=== PATIENT | male | born 1950 | race Caucasian/White ===

== ENCOUNTER → 2017-11-09 | Outpatient (CLI) | payer MEDICARE ==
[~2017-11-09] MED LIST: AMIT150T PO; APIX5TAB PO; FLUO40CA2 PO; GABA600T2 PO; MORP60TA PO; OXYC-307 PO; PREG300C PO
== END | disposition home or self-care (01) ==
LOC: STAR 09:09
PROVIDERS: ATTEND Internal Medicine Cardiovascular Disease
DX: Z02.9 Encounter for administrative examinations, unspecified (principal)

== ENCOUNTER 2017-11-12 05:52 | Observation (INO) | payer MEDICARE ==
[2017-11-09 09:46] VITALS: BP 137/103
[2017-11-09 10:20] LABS: ALANINE AMINOTRANSFERASE 23 U/L (12-78); ALBUMIN 3.7 g/dL (3.4-5.0); ANION GAP 5 mmol/L (5-15); CALCIUM 8.5 mg/dL (8.5-10.1); CHLORIDE 105 mmol/L (98-107); CREATININE 0.75 mg/dL (0.7-1.3)
[2017-11-09 10:23] LABS: ALKALINE PHOSPHATASE 91 U/L (45-117); BILIRUBIN,TOTAL 0.3 mg/dL (0.2-1.0)
[2017-11-09 10:31] LABS: BASOPHILS # (AUTO) 0.01 x10^3/uL (0-0.1); BASOPHILS % (AUTO) 0 % (0-1); EOSINOPHILS # (AUTO) 0.07 x10^3/uL (0-0.4); EOSINOPHILS % (AUTO) 1 % (1-7); LYMPHOCYTES # (AUTO) 0.96 x10^3/uL (1-3.4); LYMPHOCYTES % (AUTO) 17 % (22-44); MD NO; MEAN CORPUSCULAR HEMOGLOBIN 30.7 pg (27.5-34.5); MEAN CORPUSCULAR HGB CONC 33.8 g/dL (33.2-36.2); MEAN CORPUSCULAR VOLUME 90.9 fL (81-97); MEAN PLATELET VOLUME 9.2 fL (7.4-10.4); MONOCYTES % (AUTO) 5 % (2-9); NEUTROPHILS # (AUTO) 4.36 x10^3/uL (1.8-6.8); NEUTROPHILS % (AUTO) 77 % (42-75); PLATELET COUNT 182 x10^3/uL (130-400); RED BLOOD COUNT 4.73 x10^6/uL (4.38-5.82); RED CELL DISTRIBUTION WIDTH 14.3 % (9.4-14.8)
[~2017-11-12] VITALS: Ht 182.9 cm; Wt 81.8 kg
[~2017-11-12 05:52] MED LIST changes: -APIX5TAB PO
[2017-11-12] MEDS ORDERED: SODIUM CHLORIDE 0.9% 1,000 ML IV SCH ×2 (06:05→06:30)
[2017-11-12] MEDS ORDERED: MIDAZOLAM 1 MG/ML, 2ML ONE (07:47)
[2017-11-12] MEDS ORDERED: FENTANYL PF 250 MCG/5ML ONE (07:47)
[2017-11-12] MEDS ORDERED: PROPOFOL 10 MG/ML, 20ML ONE (08:08)
[2017-11-12] MEDS ORDERED: PHENYLEPHRINE 10 MG/ML ONE (08:08)
[2017-11-12] MEDS ORDERED: ONDANSETRON 2MG/ML, 2ML ONE (08:08)
[2017-11-12] MEDS ORDERED: DEXAMETHASONE 4 MG/ML, 1ML ONE (08:08)
[2017-11-12] MEDS ORDERED: CEFAZOLIN 1,000 MG ONE (08:08)
[2017-11-12] MEDS ORDERED: ROCURONIUM 10 MG/ML,10ML ONE (08:08)
[2017-11-12] MEDS ORDERED: SUCCINYLCHOLINE 20 MG/ML, 10ML ONE (08:08)
[2017-11-12 08:20] VITALS: BP 137/103
[2017-11-12] MEDS ORDERED: LIDOCAINE 2%, 50ML ONE (08:25)
[2017-11-12] MEDS ORDERED: OXYcodone/APAP 10/325MG TABLET PO PRN (09:30)
[2017-11-12] MEDS ORDERED: hydrALAzine 20 MG/ML, 1ML IV PRN (10:00)
[2017-11-12] MEDS ORDERED: ALBUTEROL SULFATE 2.5 MG/3 ML NPPB PRN (10:00)
[2017-11-12] MEDS ORDERED: OXYcodone 5 MG/5 ML ORAL.SOL UDC PO PRN (10:00)
[2017-11-12] MEDS ORDERED: MIDAZOLAM 1 MG/ML, 2ML IV PRN (10:00)
[2017-11-12] MEDS ORDERED: ONDANSETRON 2MG/ML, 2ML IV PRN (10:00)
[2017-11-12] MEDS ORDERED: FENTANYL PF 100 MCG/2ML IV PRN (10:00)
[2017-11-12] MEDS ORDERED: ACETAMINOPHEN 325 MG TABLET PO PRN ×2 (10:00→12:00)
[2017-11-12] MEDS ORDERED: HYDROmorphone 1 MG/ML, 1ML IV PRN (10:00)
[2017-11-12] MEDS ORDERED: LORazepam 2 MG/ML, 1ML IVPush PRN (10:00)
[2017-11-12] MEDS ORDERED: LABETALOL 5MG/ML, 20ML IV PRN (10:00)
[2017-11-12] MEDS ORDERED: PROMETHAZINE 12.5 MG SUPP PR PRN (10:00)
[2017-11-12] MEDS ORDERED: PROMETHAZINE 25 MG/ML, 1ML IV PRN (10:00)
[2017-11-12] MEDS ORDERED: ONDANSETRON ODT 8 MG PO PRN (10:00)
[2017-11-12] MEDS ORDERED: MEPERIDINE/PF 25MG/0.5ML IVPush PRN (10:00)
[2017-11-12] MEDS ORDERED: ACETAMINOPHEN 650 MG/20.3 ML UDC ONE (10:31)
[2017-11-12] MEDS ORDERED: OXYcodone 5 MG/5 ML ORAL.SOL UDC ONE (10:31)
[2017-11-12] MEDS ORDERED: GABAPENTIN 300 MG CAPSULE PO SCH (11:00)
[2017-11-12] MEDS ORDERED: CEFAZOLIN PMX 1GM/50ML 50 ML IVPB SCH (12:00)
[2017-11-12] MEDS ORDERED: HYDROcodone/APAP 5/325 TABLET PO PRN (12:00)
[2017-11-12] MEDS ORDERED: HOLD MEDICATION MC PRN (12:00)
[2017-11-12] MEDS ORDERED: APIX5TAB PO (13:27)
[2017-11-12] MEDS ORDERED: OMEPRAZOLE 10 MG CAPSULE.DR PO ONE (13:30)
[2017-11-12] MEDS ORDERED: morphine SULFATE 60 MG TABLET.ER PO SCH (16:00)
[2017-11-12] MEDS ORDERED: AMITRIPTYLINE 50 MG TABLET PO SCH (21:00)
[2017-11-12] MEDS ORDERED: SODIUM CHLORIDE FLUSH 10ML SYR IVF SCH (21:00)
[2017-11-12] MEDS ORDERED: PREGABALIN 150 MG CAPSULE PO SCH (21:00)
[2017-11-13] MEDS ORDERED: FLUOXETINE HCL 20 MG CAPSULE PO SCH (09:00)
== END 2017-11-12 14:22 | disposition home or self-care (01) ==
LOC: CACL 05:52 → ORIP 11:35
PROVIDERS: ADMIT Internal Medicine Cardiovascular Disease; ATTEND Internal Medicine Cardiovascular Disease
DX: I48.92 Unspecified atrial flutter (principal); Z79.01 Long term (current) use of anticoagulants
CPT/HCPCS: 36415; 71046; 80053; 85025; 93312; 93321; 93325; 93613; 93621; 93653; C1730; C1731; C1894; C2630; G0378; J0330; J0690; J1100; J2250; J2370; J2405; J2704; J3010

== ENCOUNTER 2018-11-04 11:21 | Outpatient (CLI) | payer MEDICARE ==
[~2018-11-04 11:21] MED LIST changes: +APIX5TAB PO; -GABA600T2 PO; +GABA600T7 PO; -MORP60TA PO; +MORP60TA63 PO
[2018-11-04] MEDS ORDERED: REGADENOSON 0.4 MG/5 ML SYRINGE ONE (11:30)
== END 2018-11-04 23:59 | disposition home or self-care (01) ==
LOC: CFH 11:21
PROVIDERS: ATTEND Internal Medicine Cardiovascular Disease
DX: I48.92 Unspecified atrial flutter (principal)
CPT/HCPCS: 78452; 93017; A9502; J2785

== ENCOUNTER 2019-03-11 06:13 | Observation (INO) | payer MEDICARE ==
[2019-03-10 10:56] LABS: BASOPHILS # (AUTO) 0.01 x10^3/uL (0-0.1); BASOPHILS % (AUTO) 0 % (0-1); EOSINOPHILS # (AUTO) 0.18 x10^3/uL (0-0.4); EOSINOPHILS % (AUTO) 4 % (1-7); LYMPHOCYTES # (AUTO) 1.06 x10^3/uL (1-3.4); LYMPHOCYTES % (AUTO) 21 % (22-44); MD NO; MEAN CORPUSCULAR HEMOGLOBIN 30.2 pg (27.5-34.5); MEAN CORPUSCULAR VOLUME 91.6 fL (81-97); MEAN PLATELET VOLUME 8.8 fL (7.4-10.4); MONOCYTES # (AUTO) 0.39 x10^3/uL (0.2-0.8); MONOCYTES % (AUTO) 8 % (2-9); NEUTROPHILS # (AUTO) 3.41 x10^3/uL (1.8-6.8); NEUTROPHILS % (AUTO) 68 % (42-75); PLATELET COUNT 180 x10^3/uL (130-400); RED BLOOD COUNT 4.93 x10^6/uL (4.38-5.82); RED CELL DISTRIBUTION WIDTH 16.5 % (9.4-14.8)
[2019-03-10 11:03] LABS: ANION GAP 5 mmol/L (5-15); CALCIUM 9.2 mg/dL (8.5-10.1); CHLORIDE 102 mmol/L (98-107); CREATININE 0.75 mg/dL (0.7-1.3)
[2019-03-10 11:08] VITALS: BP 164/88
[~2019-03-11] VITALS: Ht 182.9 cm; Wt 82.3 kg
[~2019-03-11 06:13] MED LIST changes: +ONDA8TAB15 PO; +fluoxetine PO; +lidoderm patch 5% TD
[2019-03-11] MEDS ORDERED: SODIUM CHLORIDE 0.9% 1,000 ML IV SCH (06:23)
[2019-03-11] MEDS ORDERED: LIDOCAINE 1%, 20ML ONE (07:01)
[2019-03-11] MEDS ORDERED: PROPOFOL 50 ML ONE (07:49)
[2019-03-11] MEDS ORDERED: FENTANYL PF 250 MCG/5ML ONE (07:49)
[2019-03-11] MEDS ORDERED: MIDAZOLAM 1 MG/ML, 2ML ONE (07:49)
[2019-03-11] MEDS ORDERED: MIDAZOLAM 1 MG/ML, 2ML IV PRN (09:30)
[2019-03-11] MEDS ORDERED: OXYcodone 5 MG/5 ML ORAL.SOL UDC PO PRN (09:30)
[2019-03-11] MEDS ORDERED: EPHEDRINE 50 MG/ML, 1ML IM PRN (09:30)
[2019-03-11] MEDS ORDERED: PLEASE ENTER HEIGHT AND WEIGHT MC SCH (09:30)
[2019-03-11] MEDS ORDERED: EPHEDRINE 50 MG/ML, 1ML IVPush PRN (09:30)
[2019-03-11] MEDS ORDERED: FENTANYL PF 100 MCG/2ML IV PRN (09:30)
[2019-03-11] MEDS ORDERED: DIAZEPAM 5 MG/ML, 2ML IVPush PRN (09:30)
[2019-03-11] MEDS ORDERED: ACETAMINOPHEN 325 MG TABLET PO PRN (09:30)
[2019-03-11] MEDS ORDERED: DIPHENHYDRAMINE 50 MG/ML, 1ML IVPush PRN (09:30)
[2019-03-11] MEDS ORDERED: MORPHINE SULFATE 4 MG/ML, 1ML IVPush PRN (09:30)
[2019-03-11] MEDS ORDERED: SUCCINYLCHOLINE 20 MG/ML, 10ML ONE (10:25)
[2019-03-11] MEDS ORDERED: HEPARIN 1,000 UNITS/ML, 10ML ONE ×2 (10:25)
[2019-03-11] MEDS ORDERED: DEXAMETHASONE 4 MG/ML, 1ML ONE ×2 (10:25)
[2019-03-11] MEDS ORDERED: ROCURONIUM 10MG/ML,5ML ONE (10:25)
[2019-03-11] MEDS ORDERED: ONDANSETRON 2MG/ML, 2ML ONE (10:25)
[2019-03-11] MEDS ORDERED: ONDANSETRON 8 MG TABLET PO SCH (10:30)
[2019-03-11] MEDS ORDERED: APIXABAN 5 MG TABLET ONE (11:29)
[2019-03-11] MEDS: APIXABAN 5 MG TABLET PO SCH ×2 (11:30→21:18)
[2019-03-11] MEDS ORDERED: LIDODERM 5% PATCH TD PRN (12:30)
[2019-03-11] MEDS: OXYcodone/APAP 10/325MG TABLET PO PRN ×3 (12:47→21:18)
[2019-03-11 13:44] VITALS: BP 104/68
[2019-03-11] MEDS: morphine SULFATE 60 MG TABLET.ER PO SCH ×2 (16:35→21:00)
[2019-03-11 18:43] VITALS: BP 120/74
[2019-03-11] MEDS: GABAPENTIN 400 MG CAPSULE PO SCH (20:38)
[2019-03-11] MEDS: PREGABALIN 150 MG CAPSULE PO SCH (20:38)
[2019-03-11] MEDS ORDERED: AMITRIPTYLINE 75 MG TABLET PO SCH (21:00)
[2019-03-12 00:07] VITALS: BP 92/49
[2019-03-12 06:16] VITALS: BP 163/95
[2019-03-12] MEDS: OXYcodone/APAP 10/325MG TABLET PO PRN (06:18)
[2019-03-12 07:03] VITALS: BP 142/83
[2019-03-12] MEDS: GABAPENTIN 400 MG CAPSULE PO SCH (08:42)
[2019-03-12] MEDS: PREGABALIN 150 MG CAPSULE PO SCH (08:43)
[2019-03-12] MEDS: APIXABAN 5 MG TABLET PO SCH (08:43)
[2019-03-12] MEDS: morphine SULFATE 60 MG TABLET.ER PO SCH (08:43)
[2019-03-12] MEDS ORDERED: FLUOXETINE PO SCH (09:00)
[2019-03-12] MEDS ORDERED: APIX5TAB PO (10:46)
== END 2019-03-12 12:15 | disposition home or self-care (01) ==
LOC: CACL 06:13 → ORIP 10:11 → 5SO 11:50 → DCLOUNGE 03-12 12:02
PROVIDERS: ADMIT Internal Medicine Cardiovascular Disease; ATTEND Internal Medicine Cardiovascular Disease
DX: I48.91 Unspecified atrial fibrillation (principal); I48.92 Unspecified atrial flutter; Z79.01 Long term (current) use of anticoagulants
CPT/HCPCS: 36415; 71046; 80048; 85025; 85347; 93308; 93321; 93325; 93613; 93620; 93621; 93662; C1730; C1732; C1759; C1766; C1893; C1894; G0378; J0330; J1100; J1644; J2250; J2405; J2704; J3010; J3490; 93462

== ENCOUNTER 2019-07-15 09:55 | Day surgery (SDC) | payer MEDICARE ==
[~2019-07-15] VITALS: Ht 182.9 cm; Wt 77.3 kg
[~2019-07-15 09:55] MED LIST changes: -ONDA8TAB15 PO; +ONDA8TAB18 PO
[2019-07-15] MEDS ORDERED: ASPI81TA45 PO (10:42)
[2019-07-15] MEDS ORDERED: SODIUM CHLORIDE 0.9% 1,000 ML IV SCH (11:00)
[2019-07-15 11:02] VITALS: BP 135/92
[2019-07-15 11:12] LABS: BASOPHILS # (AUTO) 0.02 x10^3/uL (0-0.1); BASOPHILS % (AUTO) 0 % (0-1); EOSINOPHILS # (AUTO) 0.15 x10^3/uL (0-0.4); EOSINOPHILS % (AUTO) 3 % (1-7); LYMPHOCYTES # (AUTO) 1.29 x10^3/uL (1-3.4); LYMPHOCYTES % (AUTO) 25 % (22-44); MD NO; MEAN CORPUSCULAR HEMOGLOBIN 30.8 pg (27.5-34.5); MEAN CORPUSCULAR HGB CONC 32.8 g/dL (33.2-36.2); MEAN PLATELET VOLUME 9.5 fL (7.4-10.4); MONOCYTES # (AUTO) 0.36 x10^3/uL (0.2-0.8); MONOCYTES % (AUTO) 7 % (2-9); NEUTROPHILS # (AUTO) 3.44 x10^3/uL (1.8-6.8); NEUTROPHILS % (AUTO) 65 % (42-75); PLATELET COUNT 144 x10^3/uL (130-400); RED BLOOD COUNT 4.41 x10^6/uL (4.38-5.82); RED CELL DISTRIBUTION WIDTH 14.3 % (9.4-14.8)
[2019-07-15 11:23] LABS: ANION GAP 4 mmol/L (5-15); CALCIUM 8.9 mg/dL (8.5-10.1); CHLORIDE 105 mmol/L (98-107)
[2019-07-15] MEDS ORDERED: PROPOFOL 10 MG/ML, 20ML ONE (11:50)
[2019-07-15] MEDS ORDERED: RIVA10TA2 PO (12:22)
[2019-07-15] MEDS ORDERED: SOTA120T26 PO (12:22)
[2019-07-15] MEDS ORDERED: Xarelto PO (13:09)
== END 2019-07-15 13:51 | disposition home or self-care (01) ==
LOC: CACL 09:55
PROVIDERS: ATTEND Internal Medicine Cardiovascular Disease
DX: I48.91 Unspecified atrial fibrillation (principal); I48.92 Unspecified atrial flutter; I34.0 Nonrheumatic mitral (valve) insufficiency; Z79.01 Long term (current) use of anticoagulants; Z79.891 Long term (current) use of opiate analgesic; Z79.899 Other long term (current) drug therapy; Z88.2 Allergy status to sulfonamides
CPT/HCPCS: 36415; 80048; 85025; 92960; 93005; 93312; 93321; 93325; J2704

== ENCOUNTER 2019-12-19 06:01 | Day surgery (SDC) | payer MEDICARE ==
[~2019-12-19] VITALS: Ht 182.9 cm; Wt 79.5 kg
[~2019-12-19 06:01] MED LIST changes: +ASPI81TA45 PO; +RIVA10TA2 PO; +SOTA120T26 PO; +Xarelto PO
[2019-12-19] MEDS ORDERED: APIX5TAB PO (06:35)
[2019-12-19] MEDS ORDERED: ESOM20CA PO (06:45)
[2019-12-19 06:46] VITALS: BP 110/86
[2019-12-19 07:11] LABS: BASOPHILS # (AUTO) 0.03 x10^3/uL (0-0.1); BASOPHILS % (AUTO) 1 % (0-1); EOSINOPHILS # (AUTO) 0.18 x10^3/uL (0-0.4); EOSINOPHILS % (AUTO) 4 % (1-7); LYMPHOCYTES # (AUTO) 0.92 x10^3/uL (1-3.4); LYMPHOCYTES % (AUTO) 20 % (22-44); MD NO; MEAN CORPUSCULAR HEMOGLOBIN 28.7 pg (27.5-34.5); MEAN CORPUSCULAR HGB CONC 31.7 g/dL (33.2-36.2); MEAN PLATELET VOLUME 9.7 fL (7.4-10.4); MONOCYTES # (AUTO) 0.39 x10^3/uL (0.2-0.8); MONOCYTES % (AUTO) 9 % (2-9); NEUTROPHILS # (AUTO) 3.03 x10^3/uL (1.8-6.8); NEUTROPHILS % (AUTO) 67 % (42-75); PLATELET COUNT 140 x10^3/uL (130-400); RED BLOOD COUNT 4.28 x10^6/uL (4.38-5.82); RED CELL DISTRIBUTION WIDTH 14.3 % (9.4-14.8)
[2019-12-19 07:14] LABS: ANION GAP 5 mmol/L (5-15); CALCIUM 8.7 mg/dL (8.5-10.1); CHLORIDE 104 mmol/L (98-107); CREATININE 0.75 mg/dL (0.7-1.3)
[2019-12-19] MEDS ORDERED: PROPOFOL 10 MG/ML, 20ML ONE (07:56)
== END 2019-12-19 09:51 | disposition home or self-care (01) ==
LOC: CACL 06:01
PROVIDERS: ATTEND Internal Medicine Clinical Cardiac Electrophysiology
DX: I48.92 Unspecified atrial flutter (principal); I34.0 Nonrheumatic mitral (valve) insufficiency; I36.1 Nonrheumatic tricuspid (valve) insufficiency; K21.9 Gastro-esophageal reflux disease without esophagitis; Z20.828 Contact with and (suspected) exposure to other viral communicable diseases; Z79.01 Long term (current) use of anticoagulants; Z79.899 Other long term (current) drug therapy; Z88.1 Allergy status to other antibiotic agents; Z88.2 Allergy status to sulfonamides
CPT/HCPCS: 36415; 80048; 85025; 87635; 92960; 93312; 93325; J2704

== ENCOUNTER 2019-12-22 10:08 | Observation (INO) | payer MEDICARE ==
[~2019-12-22] VITALS: Ht 182.9 cm; Wt 79.1 kg
[~2019-12-22 10:08] MED LIST changes: +ESOM20CA PO
--- NOTE | 2019-12-22 10:50 | NUR ---
PT C/O CHEST PAIN AND WEAKNESS THAT STARTED SUNDAY. PT STATES HIS PAIN WAS AN 8/10 BUT UPON COMIN GOT THE ER HIS PAIN IS 2/10. WEAKNESS IS ALSO IMPROVING PER PT. PT PLACED ON MONITOR AND POSITION OF COMFORT. MD BEDSIDE. AWAITING FURTHE ORDERS.
--- NOTE | 2019-12-22 10:53 | NUR ---
WRAPPED OMARI BANDAGE TO RIGHT LOWER LEG NOTED. PT STATES HE HAS A WOUND THAT IS SLOW HEALING.
[2019-12-22 11:25] LABS: BASOPHILS # (AUTO) 0.03 x10^3/uL (0-0.1); BASOPHILS % (AUTO) 1 % (0-1); EOSINOPHILS # (AUTO) 0.13 x10^3/uL (0-0.4); EOSINOPHILS % (AUTO) 3 % (1-7); LYMPHOCYTES # (AUTO) 0.99 x10^3/uL (1-3.4); LYMPHOCYTES % (AUTO) 25 % (22-44); MD NO; MEAN CORPUSCULAR HEMOGLOBIN 29.2 pg (27.5-34.5); MEAN CORPUSCULAR HGB CONC 32.6 g/dL (33.2-36.2); MEAN PLATELET VOLUME 10.1 fL (7.4-10.4); MONOCYTES # (AUTO) 0.31 x10^3/uL (0.2-0.8); MONOCYTES % (AUTO) 8 % (2-9); NEUTROPHILS # (AUTO) 2.59 x10^3/uL (1.8-6.8); NEUTROPHILS % (AUTO) 64 % (42-75); PLATELET COUNT 149 x10^3/uL (130-400); RED BLOOD COUNT 4.17 x10^6/uL (4.38-5.82); RED CELL DISTRIBUTION WIDTH 14.5 % (9.4-14.8)
[2019-12-22 11:34] LABS: ANION GAP 6 mmol/L (5-15); CALCIUM 8.7 mg/dL (8.5-10.1); CHLORIDE 105 mmol/L (98-107); CREATININE 0.74 mg/dL (0.7-1.3)
[2019-12-22 11:35] LABS: ALBUMIN 3.3 g/dL (3.4-5.0)
[2019-12-22 11:40] LABS: TROPONIN I < 0.015 ng/mL (0.000-0.045)
--- NOTE | 2019-12-22 12:21 | NUR ---
MD AT BEDSIDE DISCUSSING POC. AT BEDSIDE
[2019-12-22] MEDS ORDERED: ASPIRIN 325 MG TABLET PO ONE (13:00)
[2019-12-22] MEDS ORDERED: ASPIRIN 325 MG TABLET ONE (13:23)
--- NOTE | 2019-12-22 13:35 | NUR ---
TASK RN NOTE: 1ST ATTEMPT TO CALL FOR REPORT.
--- NOTE | 2019-12-22 13:55 | NUR ---
PHONE REPORT GIVEN TO ANA.
[2019-12-22] MEDS ORDERED: ACETAMINOPHEN 325 MG TABLET PO PRN (14:00)
[2019-12-22] MEDS ORDERED: SENNA/DOCUSATE TABLET PO PRN (14:00)
[2019-12-22] MEDS ORDERED: LIDODERM 5% PATCH TD SCH (14:00)
[2019-12-22] MEDS ORDERED: OXYcodone/APAP 10/325MG TABLET PO PRN ×2 (14:00→22:00)
[2019-12-22] MEDS ORDERED: ONDANSETRON 2MG/ML, 2ML IVPush PRN (14:00)
[2019-12-22] MEDS ORDERED: ONDANSETRON ODT 4 MG PO PRN (14:00)
[2019-12-22] MEDS ORDERED: POLYETHYLENE GLYCOL 17 GM PACKET PO PRN (14:00)
[2019-12-22 14:26] VITALS: BP 129/87
[2019-12-22] MEDS ORDERED: morphine SULFATE 60 MG TABLET.ER PO SCH (16:00)
[2019-12-22 16:48] LABS: TROPONIN I < 0.015 ng/mL (0.000-0.045)
[2019-12-22] MEDS: OXYcodone/APAP 10/325MG TABLET PO PRN (18:42)
[2019-12-22 19:12] VITALS: BP 100/64
[2019-12-22] MEDS ORDERED: AMITRIPTYLINE 75 MG TABLET PO SCH (21:00)
[2019-12-22] MEDS ORDERED: ATORVASTATIN 40 MG TABLET PO SCH (21:00)
[2019-12-22 21:07] LABS: TROPONIN I < 0.015 ng/mL (0.000-0.045)
[2019-12-22] MEDS: APIXABAN 5 MG TABLET PO SCH (21:40)
[2019-12-22] MEDS: PREGABALIN 150 MG CAPSULE PO SCH (21:41)
[2019-12-22] MEDS: morphine SULFATE 60 MG TABLET.ER PO SCH (21:41)
[2019-12-22] MEDS: GABAPENTIN 400 MG CAPSULE PO SCH (21:42)
[2019-12-23 01:50] VITALS: BP 122/81
[2019-12-23] MEDS ORDERED: PANTOPRAZOLE 40MG TABLET PO SCH (06:00)
[2019-12-23] MEDS: OXYcodone/APAP 10/325MG TABLET PO PRN (06:35)
[2019-12-23 06:54] VITALS: BP 137/91
[2019-12-23] MEDS ORDERED: FLUO20CA23 PO (08:14)
[2019-12-23] MEDS: morphine SULFATE 60 MG TABLET.ER PO SCH (08:21)
[2019-12-23] MEDS: PREGABALIN 150 MG CAPSULE PO SCH (08:21)
[2019-12-23] MEDS: APIXABAN 5 MG TABLET PO SCH (08:21)
[2019-12-23] MEDS: GABAPENTIN 400 MG CAPSULE PO SCH (08:21)
[2019-12-23] MEDS ORDERED: FLUOXETINE HCL 20 MG CAPSULE PO SCH (09:00)
[2019-12-31] MEDS ORDERED: METO25TA35 PO (10:36)
== END 2019-12-23 10:05 | disposition home or self-care (01) ==
LOC: ED 10:55 → INTOOBSV 12:36 → EDIP 12:36 → 5SO 14:14 → DCLOUNGE 12-23 10:00
PROVIDERS: ADMIT Internal Medicine; ATTEND Family Medicine
DX: R07.89 Other chest pain (principal); R06.00 Dyspnea, unspecified; R53.1 Weakness; I48.91 Unspecified atrial fibrillation; I48.92 Unspecified atrial flutter; D68.69 Other thrombophilia; D64.9 Anemia, unspecified; E78.5 Hyperlipidemia, unspecified; S81.801A Unspecified open wound, right lower leg, initial encounter; G62.9 Polyneuropathy, unspecified; I51.7 Cardiomegaly; K21.9 Gastro-esophageal reflux disease without esophagitis; F11.20 Opioid dependence, uncomplicated; Z79.899 Other long term (current) drug therapy; Z79.01 Long term (current) use of anticoagulants; X58.XXXA Exposure to other specified factors, initial encounter; Y93.89 Activity, other specified; Y92.89 Other specified places as the place of occurrence of the external cause
CPT/HCPCS: 36415; 71045; 80048; 82040; 84484; 85025; 93005; 99285; G0378

== ENCOUNTER 2019-12-30 11:58 | Outpatient (CLI) | payer MEDICARE ==
[~2019-12-30 11:58] MED LIST changes: +FLUO20CA23 PO
[2019-12-31] MEDS ORDERED: METO25TA35 PO (10:36)
== END 2019-12-30 23:59 | disposition home or self-care (01) ==
LOC: RAD 11:58
PROVIDERS: ATTEND Nurse Practitioner Family
DX: R07.9 Chest pain, unspecified (principal); I48.92 Unspecified atrial flutter; I51.7 Cardiomegaly; M40.295 Other kyphosis, thoracolumbar region; K44.9 Diaphragmatic hernia without obstruction or gangrene
CPT/HCPCS: 71046

== ENCOUNTER 2020-01-02 12:25 | Observation (INO) | payer MEDICARE ==
[~2020-01-02] VITALS: Ht 182.9 cm; Wt 79.5 kg
[~2020-01-02 12:25] MED LIST changes: +METO25TA35 PO
[2020-01-02] MEDS ORDERED: SODIUM CHLORIDE 0.9% 1,000 ML IV SCH (12:48)
[2020-01-02 12:56] VITALS: BP 137/96
[2020-01-02] MEDS ORDERED: FENTANYL PF 250 MCG/5ML ONE (14:32)
[2020-01-02] MEDS ORDERED: LIDOCAINE-MPF 2% ,5ML ONE (15:04)
[2020-01-02] MEDS ORDERED: PROMETHAZINE 25 MG/ML, 1ML IVPush PRN (15:30)
[2020-01-02] MEDS ORDERED: ACETAMINOPHEN 325 MG TABLET PO PRN (15:30)
[2020-01-02] MEDS ORDERED: EPHEDRINE 50 MG/ML, 1ML IVPush PRN (15:30)
[2020-01-02] MEDS ORDERED: ONDANSETRON 2MG/ML, 2ML IVPush PRN (15:30)
[2020-01-02] MEDS ORDERED: LABETALOL 5MG/ML, 20ML IV PRN (15:30)
[2020-01-02] MEDS ORDERED: MEPERIDINE/PF 25MG/0.5ML IVPush PRN (15:30)
[2020-01-02] MEDS ORDERED: hydrALAzine 20 MG/ML, 1ML IV PRN (15:30)
[2020-01-02] MEDS ORDERED: OXYcodone 5 MG/5 ML ORAL.SOL UDC PO PRN (15:30)
[2020-01-02] MEDS ORDERED: LIDOCAINE-MPF 1%, 5ML ONE (15:30)
[2020-01-02] MEDS ORDERED: ROCURONIUM 10 MG/ML,10ML ONE (15:38)
[2020-01-02] MEDS ORDERED: PROPOFOL 10 MG/ML, 20ML ONE (15:38)
[2020-01-02] MEDS ORDERED: NEOSTIGMINE 1 MG/ML, 10ML ONE (15:38)
[2020-01-02] MEDS ORDERED: GLYCOPYRROLATE 0.2MG/1ML, 5ML ONE (15:38)
[2020-01-02] MEDS ORDERED: ONDANSETRON 2MG/ML, 2ML ONE (15:38)
[2020-01-02] MEDS ORDERED: SUCCINYLCHOLINE 20 MG/ML, 10ML ONE (15:38)
[2020-01-02] MEDS ORDERED: DEXAMETHASONE 4 MG/ML, 1ML ONE (15:38)
[2020-01-02] MEDS ORDERED: PHENYLEPHRINE 10 MG/ML ONE (15:41)
[2020-01-02] MEDS ORDERED: FENTANYL PF 100 MCG/2ML ONE ×2 (18:26→18:54)
[2020-01-02] MEDS ORDERED: HYDROmorphone 1 MG/ML, 1ML INJ ONE (18:26)
[2020-01-02] MEDS ORDERED: OXYcodone 5 MG/5 ML ORAL.SOL UDC ONE (18:27)
[2020-01-02] MEDS: FENTANYL PF 100 MCG/2ML IV PRN ×3 (18:29→18:56)
[2020-01-02] MEDS ORDERED: ONDANSETRON 8 MG TABLET PO SCH ×2 (18:30→21:30)
[2020-01-02] MEDS ORDERED: OXYcodone/APAP 10/325MG TABLET PO PRN (18:30)
[2020-01-02] MEDS ORDERED: DIAZEPAM 5 MG/ML, 2ML ONE (18:40)
[2020-01-02] MEDS: HYDROmorphone 1 MG/ML, 1ML INJ IVPush PRN ×2 (18:42→18:47)
[2020-01-02 20:28] VITALS: BP 134/83
[2020-01-02] MEDS: PANTOPRAZOLE 40MG TABLET PO SCH (20:43)
[2020-01-02] MEDS: APIXABAN 5 MG TABLET PO SCH (20:43)
[2020-01-02] MEDS: COLCHICINE 0.6 MG CAPSULE PO SCH (20:43)
[2020-01-02] MEDS: morphine SULFATE 60 MG TABLET.ER PO SCH (20:44)
[2020-01-02] MEDS: GABAPENTIN 400 MG CAPSULE PO SCH (20:45)
[2020-01-02] MEDS: PREGABALIN 150 MG CAPSULE PO SCH (20:45)
[2020-01-02] MEDS ORDERED: APIXABAN 5 MG TABLET PO SCH (21:00)
[2020-01-02] MEDS ORDERED: AMITRIPTYLINE 50 MG TABLET PO SCH (21:00)
[2020-01-02] MEDS ORDERED: LIDODERM 5% PATCH TD PRN (21:00)
[2020-01-02] MEDS ORDERED: ONDANSETRON 8 MG TABLET ONE (21:25)
[2020-01-02] MEDS ORDERED: ONDANSETRON 8 MG TABLET PO PRN (23:30)
[2020-01-03 00:01] VITALS: BP 128/79
[2020-01-03 07:02] VITALS: BP 104/70
[2020-01-03] MEDS: PANTOPRAZOLE 40MG TABLET PO SCH (08:56)
[2020-01-03] MEDS: COLCHICINE 0.6 MG CAPSULE PO SCH (08:58)
[2020-01-03] MEDS: APIXABAN 5 MG TABLET PO SCH (08:58)
[2020-01-03] MEDS: morphine SULFATE 60 MG TABLET.ER PO SCH (08:58)
[2020-01-03] MEDS: PREGABALIN 150 MG CAPSULE PO SCH (08:59)
[2020-01-03] MEDS: GABAPENTIN 400 MG CAPSULE PO SCH (08:59)
[2020-01-03] MEDS ORDERED: FLUOXETINE HCL 20 MG CAPSULE PO SCH (09:00)
[2020-01-03] MEDS ORDERED: METOPROLOL TARTRATE 25 MG TAB PO SCH (09:00)
== END 2020-01-03 15:45 | disposition home or self-care (01) ==
LOC: CACL 12:25 → 5SO 20:08
PROVIDERS: ADMIT Internal Medicine Cardiovascular Disease; ATTEND Internal Medicine Cardiovascular Disease
DX: I48.4 Atypical atrial flutter (principal); Z20.828 Contact with and (suspected) exposure to other viral communicable diseases; K21.9 Gastro-esophageal reflux disease without esophagitis; E03.9 Hypothyroidism, unspecified; Z79.01 Long term (current) use of anticoagulants; Z79.899 Other long term (current) drug therapy
CPT/HCPCS: 85347; 87635; 93306; 93613; 93621; 93653; 93655; 93662; C1730; C1732; C1759; C1766; C1893; C1894; G0378; J0330; J1100; J1170; J2370; J2405; J2704; J2710; J3010; J3490; Q0162; 93657

== ENCOUNTER → 2020-05-18 | Outpatient (CLI) | payer MEDICARE ==
[~2020-05-18] MED LIST changes: -OXYC-307 PO; +OXYC-380 PO
== END | disposition home or self-care (01) ==
LOC: RAD 10:29
PROVIDERS: ATTEND Nurse Practitioner
DX: S76.112A Strain of left quadriceps muscle, fascia and tendon, initial encounter (principal); M25.762 Osteophyte, left knee; M71.22 Synovial cyst of popliteal space [Baker], left knee; M22.42 Chondromalacia patellae, left knee; M25.462 Effusion, left knee; X58.XXXA Exposure to other specified factors, initial encounter; Y93.89 Activity, other specified; Y92.89 Other specified places as the place of occurrence of the external cause; Y99.8 Other external cause status